=== PATIENT | male | born 1960 | race Caucasian/White ===

== ENCOUNTER 2022-10-05 13:01 | Outpatient (RCR) | payer OTHER, SELFPAY ==
--- NOTE | 2022-10-05 13:58 | PTOPEVAL1 ---
Assessment and note entered by Izzy Link DPT Evaluation Information Assessment Status Evaluation Diagnosis L RTC tear Onset 09/29/22 Subjective Information Patient reports about 3 or 4 months ago his left shoulder started hurting. He had an MRI done and showed torn RTC but doctor said it was too much damage to repair and he wasnt a good candidate for surgery. They wanted to try conservative treatment before considering a replacement. Patient does not remember an injury but states when he was working he was doing a lot of reaching and lifting. He is now retired. Patient reports difficulty reaching to the side, raising his arm and reaching to his back pocket. Reported Pain Level Pain Score 3: Self Report Assessment PT Clinical Summary Patient presents to PT for conservative treatment for L RTC tear. Patient demonstrates increased pain, decreased ROM and decreased strength at the L shoulder limiting his ability to complete house hold tasks without increase in pain. Patient would benefit from skilled PT to address impairments and return to PLOF. Plan of Care Interventions Electrical Stimulation,Hot Pack/Cold Pack, Intermittent Compression,Manual Therapy,Mechanical Traction,Neuro Re-education,Patient/Caregiver Educati,Therapeutic Activities,Therapeutic Exercise,Self-Care/Home Management PT Services Indicated Yes Treatment Frequency and 2x weekly for 10 visits Duration These treatments will address the objective and functional deficits as defined above. The patient will be advanced safely and appropriately in order for the patient to progress towards his/her prior level of function. Additional exercises will be introduced and as well as a comprehensive home exercise program upon discharge, if needed, ?to ensure carryover of functional gains achieved in the clinic. This treatment plan has been reviewed and agreement upon by the patient.
--- NOTE | 2022-11-09 13:37 | PTOPDC ---
Assessment and note entered by Izzy Link DPT Evaluation Information Assessment Status Re-evaluation Diagnosis L RTC tear, L shoulder pain Onset 09/29/22 Subjective Information Patient reports that his shoulder is maybe a little bett . He reports he has a little bit more movement. He reports he can also reach behind his back with greater ease. He continues to have difficulty with reaching away from his body and lifting. RTMD 11/10/22 Reported Pain Level Pain Score 3: Self Report Assessment PT Clinical Summary Patient has been seen for 10 visits from 10/05/22- will good progress towards all goals. He does demonstrate improved L UE strength and increased L shoulder flexion but lacks ROM in L shoulder abduction. He does reports functional improvement with reaching up and to his back pocket but has difficulty with reaching out to the side. He is independent with HEP. At this time patient has demonstrated great improvement towards goals and is appropriate for DC. Plan of Care PT Services Indicated No Treatment Frequency and DC to independent HEP Duration
== END 2022-11-09 15:45 | disposition home or self-care (01) ==
LOC: CHSPT 13:01
PROVIDERS: Visit Provider Orthopaedic Surgery
DX: M75.102 Unspecified rotator cuff tear or rupture of left shoulder, not specified as traumatic (principal)
CPT/HCPCS: 97110; 97112; 97161; 97530